=== PATIENT | female | born 1955 | race Caucasian/White ===

== ENCOUNTER 2018-09-07 15:22 | Emergency (ER) | payer OTHER ==
[~2018-09-07] VITALS: Ht 165.1 cm; Wt 72.1 kg
[~2018-09-07 15:22] MED LIST: DOXEPIN 50MG CA50 M1; LASIX 20 MG TAB20 MG PO; PREDNISONE50 MG PO; XANAX 0.25 MG0.25 MG
[2018-09-07 16:09] LABS: ABSOLUTE BASOPHILS 0.1 thou/uL (0.0-0.2); ABSOLUTE EOSINOPHILS 0.3 thou/uL (0.0-0.7); ABSOLUTE LYMPHOCYTES 2.3 thou/uL (0.8-5.3); ABSOLUTE MONOCYTES 0.9 thou/uL (0.0-1.2); BASOPHILS 0.5 %; EOSINOPHILS 2.6 %; HEMATOCRIT 41.5 % (37.0-47.0); LYMPHOCYTES 18.4 %; MCH 30.9 pg (26.0-34.0); MCHC 33.8 g/dL (28.0-37.0); MCV 91.6 fL (80.0-100.0); MONOCYTES 7.1 %; MPV 7.8 fl. (7.2-11.1); NUCLEATED RBCS 0 /100WBC; PLATELET COUNT* 444 thou/uL (150-400); POLYS 71.4 %; RBC 4.53 mil/uL (4.20-5.00); RDW-CV 13.4 % (10.5-14.5); WBC 12.6 thou/uL (4.0-11.0)
[2018-09-07 16:21] LABS: CALCIUM 9.3 mg/dL (8.5-10.1); CREATININE 1.1 mg/dL (0.6-1.3); POTASSIUM 3.6 mmol/L (3.5-5.1)
[2018-09-07 16:22] LABS: APTT 23.6 Seconds (25.0-31.3); PROTIME 10.6 Seconds (9.20-11.50)
[2018-09-07 16:26] LABS: TOTAL BILIRUBIN 0.4 mg/dL (<0.1-1.0); TOTAL PROTEIN 7.5 g/dL (6.4-8.2)
[2018-09-07] MEDS ORDERED: PERCOCET 5-3251 EACH PO (17:50)
[2018-09-07 18:16] VITALS: BP 108/60
== END 2018-09-07 18:17 | disposition home or self-care (01) ==
LOC: M.ERS 15:22
PROVIDERS: Family Medicine
DX: S42.92XA Fracture of left shoulder girdle, part unspecified, initial encounter for closed fracture (principal); S00.83XA Contusion of other part of head, initial encounter; Z88.0 Allergy status to penicillin; F17.200 Nicotine dependence, unspecified, uncomplicated; W10.9XXA Fall (on) (from) unspecified stairs and steps, initial encounter; F41.9 Anxiety disorder, unspecified; Y93.89 Activity, other specified; Y92.89 Other specified places as the place of occurrence of the external cause; Y99.8 Other external cause status